=== PATIENT | female | born 2000 | race Caucasian/White ===

== ENCOUNTER 2019-09-29 10:38 | Emergency (ER) | payer BC ==
--- NOTE | 2019-09-29 11:45 | EDM.PDOC ---
ED HPI GENERAL MEDICAL PROBLEM - General Chief Complaint: Respiratory Problem Stated Complaint: COUGH/CHEST PAIN Time Seen by Provider: 09/29/19 11:23 Source of Information: Reports: Patient History Limitations: Reports: No Limitations - History of Present Illness INITIAL COMMENTS - FREE TEXT/NARRATIVE: Suyapa is a 18-year-old female who presents today for evaluation and treatment of cough and right-sided chest pain. She reports for 2 weeks ago she was diagnosed with influenza B. She was seen at the [facility]. She states she was not formally tested. She did not have a chest x-ray. She is given a cough suppressant but no Tamiflu as she was out a window for treatment. At that time she reports symptoms for about 72 hours. She reports her boss at work what tested positive for influenza B as well as pneumonia. She states that over the last few weeks she did start to feel better. Now about 2 or 3 days ago she has developed right sided chest pain. She reports that is pleuritic in nature. She also reports a runny nose. She denies any headaches, body aches, fevers, shortness of breath, lightheadedness, dizziness, syncope or any pain or swelling in her legs. Right Chest Pain Score (Numeric/FACES): 3 - Related Data Allergies Allergy/AdvReac Type Severity Reaction Status Date / Time pets Allergy unknown Uncoded 09/29/19 11:15 Home Meds: Home Meds Naproxen [Naprosyn] 500 mg PO Q12HR #30 tab 04/17/14 [Rx] Sucralfate [Carafate] 1 gm PO ACBED #60 tab 04/17/14 [Rx] Azithromycin 250 mg PO DAILY #6 tablet 09/29/19 [Rx] Codeine/Promethazine [Phenergan with Codeine] 5 ml PO Q4HR PRN #120 ml 09/29/19 [Rx] Past Medical History - Past Health History Medical/Surgical History: Denies Medical/Surgical History Social & Family History - Tobacco Use Smoking Status *Q: Current Every Day Smoker Years of Tobacco use: 1 Packs/Tins Daily: 0.2 - Caffeine Use Caffeine Use: Reports: None - Recreational Drug Use Recreational Drug Use: No ED ROS GENERAL - Review of Systems Review Of Systems: See Below Constitutional: Denies: Fever HEENT: Reports: Ear Pain (intermittent, right). Denies: Throat Pain Respiratory: Reports: Pleuritic Chest Pain (right sided), Cough. Denies: Shortness of Breath Cardiovascular: Denies: Lightheadedness, Syncope Musculoskeletal: Denies: Leg Pain Neurological: Denies: Syncope ED EXAM, GENERAL - Physical Exam Exam: See Below Exam Limited By: No Limitations General Appearance: Alert, WD/WN, No Apparent Distress Ears: Normal External Exam, Normal Canal (right, left excessicve cerumen), Hearing Grossly Normal, Normal TMs (right, unable to visualized entire left TM) Nose: Normal Inspection Throat/Mouth: Normal Inspection, Normal Lips, Normal Teeth, Normal Gums, Normal Oropharynx, Normal Voice, No Airway Compromise Respiratory/Chest: No Respiratory Distress, Lungs Clear, Normal Breath Sounds Cardiovascular: Normal Peripheral Pulses, Regular Rate, Rhythm, No Murmur Neurological: Alert, Oriented, Normal Cognition Psychiatric: Normal Affect, Normal Mood Skin Exam: Warm, Dry, Normal Color Course - Vital Signs Last Recorded V/S: Last Vital Signs Temp 98.2 F 09/29/19 13:06 Pulse 99 09/29/19 11:13 Resp 12 09/29/19 13:06 BP 123/85 09/29/19 11:13 Pulse Ox 100 09/29/19 13:06 - Orders/Labs/Meds Orders: Active Orders 24 hr Category Date Time Status Chest 2V [CR] Stat Exams 09/29/19 11:32 Taken - Radiology Interpretation Free Text/Narrative:: Chest: 2 views of the chest were obtained. Comparison: No prior chest x-ray is available. Comparison: No prior chest imaging. Heart size and mediastinum are normal. Lungs are clear. Bony structures show nothing acute. Impression: 1. Nothing acute is seen on 2 view chest x-ray. - Re-Assessments/Exams Free Text/Narrative Re-Assessment/Exam: 09/29/19 12:47 I reviewed her chest xray with her. I will start her on azithromycin and cough syrup for bronchitis and pleurisy. PERC rule is 0, PE can be ruled out. I will have her follow-up with family [facility] in 7 days for a recheck of her symptoms. Discharge instructions as documented. Departure - Departure Time of Disposition: 12:53 Disposition: Home, Self-Care 01 Condition: Fair Clinical Impression: Bronchitis, Pleurisy - Discharge Information *PRESCRIPTION DRUG MONITORING PROGRAM REVIEWED*: No *COPY OF PRESCRIPTION DRUG MONITORING REPORT IN PATIENT RICKIE: No Prescriptions: Codeine/Promethazine [Phenergan with Codeine] 5 ml PO Q4HR PRN #120 ml PRN Reason: Cough Azithromycin 250 mg PO DAILY #6 tablet Instructions: Acute Bronchitis, Adult, [id number], Pleurisy, [id number] Referrals: PCP,None [Primary Care Provider] - Sarika North PA-C [Physician Holistic Health Practitioner] - Forms: ED Department Discharge Additional Instructions: Take the azithromycin as prescribed. 2 tabs on day 1 followed by 1 tabs on day 2 through 5 for 5 days of antibiotic total. Recommend [id number] ibuprofen or Aleve for pain relief. You may use the cough syrup with codeine 5 mls or 1 teaspoon every 4-6 hours as needed for cough. Do not drive or operate machinery within 10 hours of taking codeine. Codeine is habit-forming, take as little as needed to control your cough. Follow-up with family medicine in 1 week for recheck of your symptoms. At the [facility] recommend telemetry clinic or [facility]. Call to schedule with one of these providers. Please return to ER if your symptoms change or worsen. Sepsis Event Note - Evaluation Sepsis Screening Result: No Definite Risk - Focused Exam Vital Signs: Vital Signs Temp Pulse Resp BP Pulse Ox 09/29/19 13:06 98.2 F 12 100 09/29/19 11:13 97.7 F 99 18 123/85 99 Date Exam was Performed: 09/29/19 Time Exam was Performed: 14:16 - My Orders Last 24 Hours: My Active Orders 09/29/19 11:32 Chest 2V [CR] Stat - Assessment/Plan Last 24 Hours: My Active Orders 09/29/19 11:32 Chest 2V [CR] Stat
--- NOTE | 2019-09-30 07:23 | CR ---
Chest: Two views of the chest were obtained. Comparison: No prior chest x-ray is available. Comparison: No prior chest imaging. Heart size and mediastinum are normal. Lungs are clear. Bony structures show nothing acute. Impression: 1. Nothing acute is seen on two-view chest x-ray. Diagnostic code #1 This report was dictated in [place] Standard Time
== END 2019-09-29 13:17 | disposition home or self-care (01) ==
LOC: JD.ED 10:38
DX: J40 Bronchitis, not specified as acute or chronic (principal); R09.1 Pleurisy; H61.22 Impacted cerumen, left ear; F17.210 Nicotine dependence, cigarettes, uncomplicated; Z91.048 Other nonmedicinal substance allergy status; Z79.899 Other long term (current) drug therapy
CPT/HCPCS: 71046; 71046-26; 99283; 99284-25